=== PATIENT | female | born 1990 | race Caucasian/White ===

== ENCOUNTER 2019-06-25 00:26 | Day surgery (SDC) | payer OTHER, SELFPAY ==
[2019-06-22 09:22] VITALS: BMI 23.8
[2019-06-25 08:19] VITALS: BP 116/81; PULSE 102; RESP 16; TEMP 36.5; O2SAT 97
--- NOTE | 2019-06-25 08:33 | P.HP_ITS ---
History of Present Illness History of Present Illness Consent: Risks, benefits, and alternatives have been discussed and questions answered. Patient agrees to proceed with procedure. Chief complaint: Change In Bowel Habits Narrative: Nancy Seaman is a 29 year old W female referred for colonoscopy secondary to change in bowel pattern. 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 There was concern she may have underlying inflammatory bowel disease. She has had chronic diarrhea for least 10 years 1-2 loose bowel movements per day no blood. She has mild crampy abdominal pain. There is no family history of inflammatory bowel disease colon polyps or colon cancer. Patient has had no associated weight loss. [facility] Past Medical History Medical History (Updated 06/25/19 @ 08:35 by Presley Katz MD) Chronic anxiety Surgical History Surgical History (Updated 06/25/19 @ 08:35 by Presley Katz MD) [facility] teeth extracted Meds Home Medications and Allergies Home Medications Medication Instructions Recorded Confirmed Type alprazolam 0.25 mg PO PRN PRN 06/22/19 06/22/19 History desogestrel-ethinyl estradiol 1 tablet PO DAILY 06/22/19 06/22/19 History [Isibloom] sertraline 100 mg PO DAILY 06/22/19 06/22/19 History Allergies Allergy/AdvReac Type Severity Reaction Status Date / Time No Known Allergies Allergy Verified 06/25/19 08:19 Vital Signs Vital Signs - 24 hr 06/25/19 08:19 Temperature 36.5 C Pulse Rate 102 H Respiratory Rate 16 Blood Pressure 116/81 Pulse Oximetry 97 Exam Const: Orientation/consciousness: patient oriented x3 Resp: Auscultation: clear to auscultation bilaterally Cardio: Rate: regular rate Rhythm: regular rhythm Heart sounds: no murmurs GI: GI Palp: Yes Soft to palpation, No Tenderness to palpation present (GI), Yes No hepatosplenomegaly present and No Palpable mass present Auscultation: normal bowel sounds Neuro: General: patient oriented x3 and no focal motor deficits Extrem: General: no pedal edema Assessment and Plan Additional Plan colonoscopy for evaluation of change in bowel pattern -- chronic diarrhea
[2019-06-25] MEDS: LACTATED RINGERS 1,000 ML 150 ML IV CONT (08:44)
--- NOTE | 2019-06-25 09:14 | P.PNAN_ITS ---
Anes - Initial Pre Proc Eval Procedure: Operation Date: 06/25/19 09:30 Proposed Procedures p Colonoscopy - Presley Katz MD Date/Time: 06/25/19 09:14 Surgeon: Presley Katz MD Pre Op Diagnosis: Change In Bowel Habits Patient Data Age: 29 Gender: F Height: 5 ft 3 in Weight: 60.8 kg Last Vital Signs Temp 36.5 C 06/25/19 08:19 Pulse 102 H 06/25/19 08:19 Resp 16 06/25/19 08:19 BP 116/81 06/25/19 08:19 Pulse Ox 97 06/25/19 08:19 Allergies Allergy/AdvReac Type Severity Reaction Status Date / Time No Known Allergies Allergy Verified 06/25/19 08:19 Home Medications Medication Instructions Recorded Confirmed Type alprazolam 0.25 mg PO PRN PRN 06/22/19 06/22/19 History desogestrel-ethinyl estradiol 1 tablet PO DAILY 06/22/19 06/22/19 History [Isibloom] sertraline 100 mg PO DAILY 06/22/19 06/22/19 History Patient hx anesthesia problems: none Family hx anesthesia problems: none PMFSH Past Medical History Medical History Chronic anxiety Surgical History Surgical History [place] teeth extracted Anes - Eval Final PreProcedure Day of Procedure 06/25/19 09:14 Patient weight: normal Heart: regular rate and rhythm Lungs: clear to auscultation Airway: Mallampati scale class II Neurological: alert and oriented Last oral intake: >/= 8 hours ASA classification: II Emergent: no Anesthetic plan: proceed Anesthesia type and monitoring: general GIVS and standard monitoring Informed Consent: The patient's anesthetic plan and its attendant risks and benefits were discussed with the patient/family/POA. Questions were solicited and answers provided to the satisfaction of the patient/family/POA.
[2019-06-25 10:03] VITALS: BP 102/59; PULSE 68; RESP 24; O2SAT 98
[2019-06-25 10:13] VITALS: BP 117/76; PULSE 64; RESP 20; O2SAT 99
[2019-06-25 10:23] VITALS: BP 115/70; PULSE 63; RESP 19; O2SAT 100
== END 2019-06-25 10:29 | disposition home or self-care (01) ==
PROVIDERS: PCP Physician Assistant; Visit Provider Internal Medicine Gastroenterology
PROC: 0DJD8ZZ Inspection of Lower Intestinal Tract, Via Natural or Artificial Opening Endoscopic (ICD-10-PCS; CPT 45378; principal; 2019-06-25 09:30)
DX: R19.7 Diarrhea, unspecified (principal); F41.9 Anxiety disorder, unspecified
CPT/HCPCS: 45380; 88305; J2704; J7120

== ENCOUNTER 2020-05-22 13:30 | Outpatient (RCR) | payer OTHER, SELFPAY ==
--- NOTE | 2020-04-08 15:30 | PTOPEVAL ---
INITIAL PHYSICAL THERAPY EVALUATION and PLAN OF CARE Thank you for referring Nancy Seaman to [facility].? Nancy is scheduled to be seen for physical therapy? 1x/week for 6 weeks. Please review, sign, date and return this plan of care FRANCIS. I agree with and certify that the following plan of care is medically necessary. Referring Physician Date Admitting Provider: Attending Provider: Quita Byrne MD Referring Provider: *PT Outpatient Evaluation Start: 04/08/20 14:14 Freq: Status: Active Protocol: Document 04/08/20 14:10 ANGELA (Rec: 04/08/20 15:29 ANGELA [id number]) Therapy Assessment Status Assessment Status Assessment Status Evaluation Outpatient Past Medical History Past Medical History Source of Past Medical History Recalled from Previous Visit, Confirmed with Patient/Family Neurological History Hx Neurological Disorders No Significant History Cardiovascular History Hx Cardiac Disorders No Significant History Respiratory History Hx Respiratory Disorders No Significant History Gastrointestinal History Hx Other Gastrointestinal Disorders Yes: CHANGE IN BOWEL HABITS Genitourinary History Hx Genitourinary Disorders No Significant History Musculoskeletal History Hx Other Musculoskeletal Disorders Yes: JOINT PAIN Hematological History Hx Hematological Disorders No Significant History Endocrine History Hx Endocrine Disorders No Significant History HEENT History Hx Dental Problems Yes: WISDOM TEETH EXTRACTION Integumentary History Hx Skin Disorders No Significant History Reproductive History Hx Other Reproductive Disorders Yes: Vulvitis Psychosocial History Hx Anxiety Yes Pain History Has Past Pain Affected Your Daily Life Yes: RECENTLY STARTED HAVING FREQUENT JOINT PAIN Anesthesia History Hx Other Anesthesia Reactions Yes: STATES IT TAKES A LOT OF ANESTHESIA TO GET HER SEDATED Evaluation Information Problem Diagnosis chronic pelvic pain of female Onset began 5-6 yrs ago Subjective Information Did have intercourse prior to Query Text:As Reported By Patient/ going on control - no Family difficulties. When she went on control (also started Zoloft medication about the same time) - decreased desire for intercourse - so didn't have as often - but when she did - increase in discomfort. Currently now with - insertion and penetration are both painful. Will be sore t
--- NOTE | 2020-05-22 17:27 | PTOPEVAL ---
PHYSICAL THERAPY DISCHARGE SUMMARY Thank you for referring Nancy Seaman to [facility].? Nancy has been seen in PT x 7 visits. She has been able to have her assist with soft tissue mobilization in the pelvic floor area and has begun to tolerate intercourse with less discomfort. She is ready for transition to [facility] but is welcome to call if she has any questions. I agree with Nancy's discharge from PT. Referring Physician Date Admitting Provider: Attending Provider: Quita Byrne MD Referring Provider: *PT Outpatient Evaluation Start: 04/08/20 14:14 Freq: Status: Active Protocol: Document 05/22/20 13:39 ANGELA (Rec: 05/22/20 14:35 ANGELA [id number]) Therapy Assessment Status Assessment Status Assessment Status Discharge Evaluation Information Problem Subjective Information Nancy reports that Query Text:As Reported By Patient/ intercourse is less painful - Family ~30-40%. Still discomfort with intercourse - insertion and penetration - but able to last longer before she needs to stop. Her has been very good about performing soft tissue stretching with levator ani musculature. Pain Assessment Timing of Pain Assessment Timing of Pain Assessment Assessment Pain Scale Pain Scale Used Numeric (1 - 10) Self Report Pain Assessment Lower Pelvis Reported Pain Level 0 Pain Description Sharp Other Pain Description sharp, stretchy pain Lowest Pain Intensity 0 Greatest Pain Intensity 7 Pain Score Pain Score 0: Self Report Pelvic Health Evaluation Pelvic Floor Assessment Permission Received for External/ Yes Internal Perineal Exam Internal Perineal Body Palpation tenderness at introtius - 5-6 o'clock region, internally - L levator ani - 3-6 o'clock region - with use of 2 fingers increased tightness felt over 1 finger - also more tenderness present Sustained Levator Ani Strength 3+/5 Quick Levator Ani Contraction in 15 5 Seconds PT Clinical Summary Clinical Summary Protocol: PTEVCODE PT Clinical Summary Vulvar Pain Functional Questionnaire - 4 pts Nancy has done well in PT in regards to decreased tenderness and tissue tension with levator ani musculature
== END 2020-05-23 09:05 | disposition home or self-care (01) ==
LOC: ANHPT 13:30
PROVIDERS: PCP Physician Assistant; Visit Provider Obstetrics & Gynecology
DX: R10.2 Pelvic and perineal pain (principal)
CPT/HCPCS: 97140; 97161

== ENCOUNTER → 2022-12-01 13:59 | Outpatient (CLI) | payer OTHER, SELFPAY ==
--- NOTE | ~2022-12-01 | MR_ITS ---
EXAMINATION: MR pituitary wo/w con DATE: 12/01/2022 14:12 INDICATION: Abnormal finding of blood chemistry. Elevated prolactin levels. Chronic generalized heada ches. TECHNIQUE: Magnetic resonance imaging (MRI) of the brain and brainstem was performed without and with 15 mL Multihance intravenous contrast. Whole-brain sequences included sagittal T1-weighted FSE, axia l diffusion-weighted FS EPI, axial T2*-weighted GRE, axial T2-weighted FLAIR Propeller, and axial T2- weighted Propeller. Small clfat-co-hsib sequences included sagittal and coronal T1-weighted FSE cente red at the pituitary. Postcontrast sequences included small elejs-gy-lsyd coronal T1-weighted FSE in a time course and sagittal T1-weighted FSE and whole-brain axial T1-weighted FSE. Apparent diffusion coefficient (ADC) maps were created. COMPARISON: None. FINDINGS: There are no areas of restricted diffusion to suggest acute infarction. No intracranial hemorrhage or abnormal intracranial mass lesion. There are scattered areas of nonspecific increased T2-weighted si gnal intensity in the cerebral white matter, predominantly involving the deep and periventricular whi te matter. There are no intraparenchymal signal abnormalities seen on the other pulse sequences.. Pit uitary appears normal no hypoenhancing or hyperenhancing pituitary nodules. The normal-appearing pitu itary stalk with a flat to minimally concave cephalad margin to the pituitary with no encroachment up on the suprasellar cistern or cavernous sinuses. The ventricles are symmetric and normal in size. The re are no abnormal extra-axial fluid collections. Flow voids are seen in the cerebral arteries on the T2-weighted sequences consistent with their expected patency. Visualized orbits and soft tissues are unremarkable. There are no areas of abnormal enhancement on the post contrast images. IMPRESSION: 1. Normal brain MR with normal appearance to the pituitary and pituitary stalk. Reviewed, dictated and finalized at location A.
== END ==
PROVIDERS: PCP Internal Medicine; Visit Provider Internal Medicine
DX: R79.89 Other specified abnormal findings of blood chemistry (principal)
CPT/HCPCS: 70553; A9577